=== PATIENT | female | born 1965 | race African-American/Black ===

== ENCOUNTER 2019-02-13 11:35 | Emergency (ER) | payer OTHER ==
[~2019-02-13] VITALS: Ht 154.9 cm; Wt 67.1 kg
[2019-02-13 11:45] VITALS: BP 120/87
== END 2019-02-13 12:53 | disposition home or self-care (01) ==
LOC: ER 11:39
DX: J03.90 Acute tonsillitis, unspecified (principal)

== ENCOUNTER 2021-04-20 14:09 | Emergency (ER) | payer OTHER ==
[~2021-04-20] VITALS: Ht 157.5 cm; Wt 67.1 kg
[2021-04-20 14:49] LABS: Urine Bacteria NONE SEEN /hpf (None Seen); Urine Blood 3+ /uL (Negative); Urine Mucus FEW (None Seen); Urine WBC 40 /hpf (0 - 5)
[2021-04-20 15:14] LABS: Basophils # (auto) 0 10 ^3/uL (0-0.2); Basophils % (auto) 0.5 % (0.0-2.0); Eosinophils # (auto) 0 10 ^3/uL (0-0.8); Eosinophils % (auto) 0.7 % (0.0-7.0); Hematocrit 39.4 % (36.0-46.0); Hemoglobin 13.4 g/dL (12.2-16.2); Lymphocytes # (auto) 1.5 10 ^3/uL (0.4-5.4); Lymphocytes % (auto) 39.6 % (10.0-50.0); Mean Corpuscular Hemoglobin 29.7 pg (28.0-32.0); Mean Corpuscular Hgb Conc. 33.9 g/dL (32.0-36.0); Mean Corpuscular Volume 87.6 fL (80.0-100.0); Monocytes # (auto) 0.3 10 ^3/uL (0-1.3); Monocytes % (auto) 8.3 % (0.0-12.0); Neutrophils # (auto) 1.9 10 ^3/uL (1.6-8.6); Neutrophils % (auto) 50.9 % (37.0-80.0); Nucleated Red Blood Cells % 0.2 %; Red Cell Distribution Width 13.9 % (11.8-14.3); White Blood Cell 3.8 10^3/uL (4.4-10.8)
[2021-04-20 15:30] LABS: Calcium 8.9 mg/dL (8.5-10.1); Potassium 3.3 mmol/L (3.5-5.1)
[2021-04-20 15:32] VITALS: BP 152/90
[2021-04-20 15:36] LABS: Albumin 3.8 g/dL (3.4-5.0); BUN/Creatinine Ratio 11.8; Bilirubin, Total 0.2 mg/dL (0.2-1.0)
[2021-04-20] MEDS ORDERED: cefTRIAXone SOD 1,000 MG VL IM ONE (16:15)
[2021-04-20] MEDS ORDERED: traMADol HCL 50 MG TAB PO ONE (17:15)
== END 2021-04-20 17:32 | disposition home or self-care (01) ==
LOC: ER 14:09
DX: N39.0 Urinary tract infection, site not specified (principal); M54.50 Low back pain, unspecified
CPT/HCPCS: 36415; 80053; 81001; 85025; 96372; 99283; J0696

== ENCOUNTER 2021-04-23 20:05 | Inpatient (IN) | payer OTHER ==
[~2021-04-23] VITALS: Ht 152.4 cm; Wt 69.5 kg
[2021-04-23 22:31] LABS: Urine Bacteria FEW /hpf (None Seen); Urine Blood Negative /uL (Negative); Urine Specific Gravity 1.005 (1.001-1.035); Urine WBC 16 /hpf (0 - 5)
[2021-04-23 23:30] LABS: Basophils # (auto) 0 10 ^3/uL (0-0.2); Basophils % (auto) 0.5 % (0.0-2.0); Eosinophils # (auto) 0 10 ^3/uL (0-0.8); Eosinophils % (auto) 0.3 % (0.0-7.0); Hematocrit 39.5 % (36.0-46.0); Hemoglobin 13.4 g/dL (12.2-16.2); Lymphocytes # (auto) 0.9 10 ^3/uL (0.4-5.4); Lymphocytes % (auto) 25.6 % (10.0-50.0); Mean Corpuscular Hemoglobin 29.6 pg (28.0-32.0); Monocytes # (auto) 0.5 10 ^3/uL (0-1.3); Monocytes % (auto) 15.5 % (0.0-12.0); Neutrophils % (auto) 58.1 % (37.0-80.0); Nucleated Red Blood Cells % 0.1 %; Red Blood Cells 4.54 10^6/uL (4.0-5.20); Red Cell Distribution Width 13.6 % (11.8-14.3); White Blood Cell 3.4 10^3/uL (4.4-10.8)
[2021-04-23] MEDS ORDERED: cefTRIAXone SOD 500 MG VL IM ONE (23:30)
[2021-04-23 23:45] LABS: Calcium 8.7 mg/dL (8.5-10.1); Potassium 3.2 mmol/L (3.5-5.1)
[2021-04-23 23:49] LABS: Albumin 3.6 g/dL (3.4-5.0); BUN/Creatinine Ratio 7.8
[2021-04-23 23:51] LABS: Bilirubin, Total 0.3 mg/dL (0.2-1.0); Total Protein 8.1 g/dL (6.4-8.2)
[2021-04-24] MEDS ORDERED: ONDANSETRON HCL 4 MG/2 ML VIAL IV PRN (03:30)
[2021-04-24] MEDS ORDERED: HYDROcodone-ACET 5/325MG TAB PO PRN (03:30)
[2021-04-24] MEDS ORDERED: ACETAMINOPHEN 325 MG TAB PO PRN (03:30)
[2021-04-24] MEDS ORDERED: POTASSIUM CHL 20 Meq TABLET PO ONE (03:30)
[2021-04-24] MEDS ORDERED: MORPHINE SULFATE INJECTION 2 MG/ML SYRG ONE (05:22)
[2021-04-24] MEDS: MORPHINE SULFATE 4 MG/ML SYR/VIAL IV PRN ×2 (05:55→20:10)
[2021-04-24] MEDS: PANTOPRAZOLE 40 MG TAB PO SCH (09:18)
[2021-04-24] MEDS: cefTRIAXone 1GM/50ML D5W 50 ML IV SCH (09:18)
[2021-04-24] MEDS ORDERED: LIDOCAINE 2%HCL (LOCAL ANESTH.) INJ 20ML MDV ONE ×3 (10:17→11:45)
[2021-04-24] MEDS ORDERED: IODIXANOL 320MG/ML 100ML BTL IV ONE (10:17)
[2021-04-24 10:50] LABS: INR 1.08 (0.9-1.15); Partial Thromboplastin Time 29.6 sec (23.6-33.0)
[2021-04-24] MEDS ORDERED: MIDAZOLAM HCL 2MG/2ML 2ml VIAL (1mg/ml) ONE (10:58)
[2021-04-24] MEDS ORDERED: fentaNYL CITRATE 100 MCG/2 ML VL ONE (10:58)
[2021-04-24] MEDS ORDERED: TAMSULOSIN HYDROCHLORIDE 0.4 MG CAP PO ONE (12:30)
[2021-04-24 14:43] VITALS: BP 153/90
[2021-04-24 14:45] VITALS: BP 153/90
[2021-04-24 17:00] VITALS: BP 132/79
[2021-04-24] MEDS: TAMSULOSIN HYDROCHLORIDE 0.4 MG CAP PO SCH (17:32)
[2021-04-24 22:00] VITALS: BP 122/78
[2021-04-25 05:00] VITALS: BP 105/68
[2021-04-25 05:58] LABS: Basophils # (auto) 0 10 ^3/uL (0-0.2); Basophils % (auto) 0.6 % (0.0-2.0); Eosinophils # (auto) 0 10 ^3/uL (0-0.8); Eosinophils % (auto) 0.4 % (0.0-7.0); Hematocrit 39.9 % (36.0-46.0); Hemoglobin 13.4 g/dL (12.2-16.2); Lymphocytes # (auto) 1.2 10 ^3/uL (0.4-5.4); Lymphocytes % (auto) 32.1 % (10.0-50.0); Mean Corpuscular Hemoglobin 29.1 pg (28.0-32.0); Mean Corpuscular Hgb Conc. 33.7 g/dL (32.0-36.0); Mean Corpuscular Volume 86.4 fL (80.0-100.0); Monocytes # (auto) 0.4 10 ^3/uL (0-1.3); Monocytes % (auto) 9.6 % (0.0-12.0); Neutrophils # (auto) 2.1 10 ^3/uL (1.6-8.6); Neutrophils % (auto) 57.3 % (37.0-80.0); Nucleated Red Blood Cells % 0.3 %; Red Blood Cells 4.61 10^6/uL (4.0-5.20); Red Cell Distribution Width 13.9 % (11.8-14.3); White Blood Cell 3.7 10^3/uL (4.4-10.8)
[2021-04-25 06:16] LABS: BUN/Creatinine Ratio 11.3; Calcium 8.9 mg/dL (8.5-10.1); Potassium 3.6 mmol/L (3.5-5.1)
[2021-04-25 08:00] VITALS: BP 118/77
[2021-04-25] MEDS: cefTRIAXone 1GM/50ML D5W 50 ML IV SCH (09:59)
[2021-04-25] MEDS: PANTOPRAZOLE 40 MG TAB PO SCH (09:59)
[2021-04-25 11:50] VITALS: BP 119/77
[2021-04-25 17:00] VITALS: BP 99/65
[2021-04-25] MEDS: TAMSULOSIN HYDROCHLORIDE 0.4 MG CAP PO SCH (18:03)
[2021-04-25 20:00] VITALS: BP 99/60
[2021-04-25 22:00] VITALS: BP 99/60
[2021-04-26] MEDS: MORPHINE SULFATE 4 MG/ML SYR/VIAL IV PRN (00:29)
[2021-04-26 05:00] VITALS: BP 105/53
[2021-04-26 09:00] VITALS: BP 101/55
[2021-04-26] MEDS: cefTRIAXone 1GM/50ML D5W 50 ML IV SCH (10:00)
[2021-04-26] MEDS: PANTOPRAZOLE 40 MG TAB PO SCH (10:00)
[2021-04-26] MEDS ORDERED: LEVO500T31 PO (11:34)
[2021-04-26] MEDS ORDERED: TAM04C PO (11:34)
[2021-04-26] MEDS ORDERED: TRAM50TA2 PO (11:34)
== END 2021-04-26 14:15 | disposition home or self-care (01) | DRG 463 ==
LOC: ER 20:10 → OVERFLOW 04-24 03:30 → WEST WING 04-24 14:36
PROVIDERS: ADMIT Nurse Practitioner; ATTEND Family Medicine
PROC: 0T9130Z Drainage of Left Kidney with Drainage Device, Percutaneous Approach (ICD-10-PCS; principal; 2021-04-24)
PROC: BT1F1ZZ Fluoroscopy of Left Kidney, Ureter and Bladder using Low Osmolar Contrast (ICD-10-PCS; 2021-04-24)
PROC: BT42ZZZ Ultrasonography of Left Kidney (ICD-10-PCS; 2021-04-24)
DX: N13.6 Pyonephrosis (principal); U07.1 COVID-19; Z90.5 Acquired absence of kidney; Z93.6 Other artificial openings of urinary tract status
CPT/HCPCS: 36415; 50432; 71045; 74176; 76942; 80048; 80053; 81001; 81025; 82962; 83605; 84702; 85025; 85610; 85730; 86850; 86900; 86901; 87086; 87426; 96365; 96372; 96375; 99152; 99153; C1729; G0378; J0696; J2250; Q9967

== ENCOUNTER 2021-05-02 14:41 | Emergency (ER) | payer OTHER ==
[~2021-05-02] VITALS: Ht 157.5 cm; Wt 67.1 kg
[~2021-05-02 14:41] MED LIST: LEVO500T31 PO; TAM04C PO; TRAM50TA2 PO
[2021-05-02 16:41] LABS: Basophils # (auto) 0.1 10 ^3/uL (0-0.2); Basophils % (auto) 1.1 % (0.0-2.0); Eosinophils # (auto) 0.1 10 ^3/uL (0-0.8); Eosinophils % (auto) 1.7 % (0.0-7.0); Hematocrit 39.5 % (36.0-46.0); Hemoglobin 13.2 g/dL (12.2-16.2); Lymphocytes # (auto) 2.1 10 ^3/uL (0.4-5.4); Lymphocytes % (auto) 45.2 % (10.0-50.0); Mean Corpuscular Hgb Conc. 33.3 g/dL (32.0-36.0); Mean Corpuscular Volume 87.2 fL (80.0-100.0); Monocytes # (auto) 0.2 10 ^3/uL (0-1.3); Monocytes % (auto) 5.1 % (0.0-12.0); Neutrophils # (auto) 2.2 10 ^3/uL (1.6-8.6); Neutrophils % (auto) 46.9 % (37.0-80.0); Nucleated Red Blood Cells % 0.3 %; Red Blood Cells 4.54 10^6/uL (4.0-5.20); Red Cell Distribution Width 13.6 % (11.8-14.3); White Blood Cell 4.6 10^3/uL (4.4-10.8)
[2021-05-02 16:57] LABS: Albumin 3.5 g/dL (3.4-5.0); Calcium 9.2 mg/dL (8.5-10.1); Potassium 4.3 mmol/L (3.5-5.1)
[2021-05-02 16:59] LABS: BUN/Creatinine Ratio 15.4
[2021-05-02 17:02] LABS: Bilirubin, Total 0.2 mg/dL (0.2-1.0); Total Protein 8.1 g/dL (6.4-8.2)
[2021-05-02 23:20] VITALS: BP 109/82
== END 2021-05-02 23:22 | disposition home or self-care (01) ==
LOC: ER 14:41
DX: T83.092A Other mechanical complication of nephrostomy catheter, initial encounter (principal); N99.520 Hemorrhage of incontinent external stoma of urinary tract; Z79.2 Long term (current) use of antibiotics; Z79.899 Other long term (current) drug therapy
CPT/HCPCS: 36415; 74176; 80053; 85025

== ENCOUNTER → 2021-05-24 | Day surgery (SDC) | payer OTHER ==
[~2021-05-24] VITALS: Ht 157.5 cm; Wt 67.6 kg
[~2021-05-24] MED LIST changes: +IOHEXOL 300 MG/ML 100ML BOTTLE IJ ONE; +MEPERIDINE HCL (25 MG/ML) 1ML VIAL ONE; +METOCLOPRAMIDE HCL 5MG/ml INJ 2ml VIAL IV PRN; +MIDAZOLAM HCL 2MG/2ML 2ml VIAL (1mg/ml) ONE; +MORPHINE SULFATE 4 MG/ML SYR/VIAL IV PRN; +ONDANSETRON HCL 4 MG/2 ML VIAL ONE; +PROPOFOL 10 MG/ML 20 ML IV ONE; +SODIUM CHLORIDE LOCK 10 ML ONE; +ceFAZolin 1GM/50ML 100 ML IV ONE
[2021-05-24] MEDS: HYDROmorphone HCL 2 MG/ML VL IV PRN ×2 (11:11→11:23)
[2021-05-24 11:45] VITALS: BP 103/67
== END | disposition home or self-care (01) ==
LOC: SUR 07:32
PROVIDERS: ATTEND Urology
DX: T19.9XXA Foreign body in genitourinary tract, part unspecified, initial encounter (principal); N13.2 Hydronephrosis with renal and ureteral calculous obstruction; Z20.822 Contact with and (suspected) exposure to COVID-19; Z86.2 Personal history of diseases of the blood and blood-forming organs and certain disorders involving the immune mechanism; Y82.8 Other medical devices associated with adverse incidents
CPT/HCPCS: 50389; 52351; 74018; J0690; J1170; J2175; J2250; J2405; J2704; Q9967; U0003; 76000

== ENCOUNTER 2024-01-30 17:46 | Emergency (ER) | payer SELFPAY ==
[~2024-01-30] VITALS: Ht 203.2 cm; Wt 68.0 kg
[~2024-01-30 17:46] MED LIST changes: -IOHEXOL 300 MG/ML 100ML BOTTLE IJ ONE; -MEPERIDINE HCL (25 MG/ML) 1ML VIAL ONE; -METOCLOPRAMIDE HCL 5MG/ml INJ 2ml VIAL IV PRN; -MIDAZOLAM HCL 2MG/2ML 2ml VIAL (1mg/ml) ONE; -MORPHINE SULFATE 4 MG/ML SYR/VIAL IV PRN; -ONDANSETRON HCL 4 MG/2 ML VIAL ONE; -PROPOFOL 10 MG/ML 20 ML IV ONE; -SODIUM CHLORIDE LOCK 10 ML ONE; -TAM04C PO; +TAMS-35 PO; -ceFAZolin 1GM/50ML 100 ML IV ONE
[2024-01-30 17:48] VITALS: BP 115/73; PULSE 86; RESP 20; TEMP 99.3; O2SAT 96
[2024-01-30] MEDS ORDERED: HYDR50TA69 PO (20:52)
[2024-01-30] MEDS ORDERED: METH4PAK PO (20:52)
[2024-01-30] MEDS: FAMOTIDINE 20 MG TAB PO ONE (20:54)
[2024-01-30] MEDS: DexAMETHasone SOD PHOS 10MG/1ML VIAL INJ IM ONE (20:59)
== END 2024-01-30 21:11 | disposition home or self-care (01) ==
LOC: ER 17:46
DX: R21 Rash and other nonspecific skin eruption (principal); M79.89 Other specified soft tissue disorders; Z87.440 Personal history of urinary (tract) infections; Z88.5 Allergy status to narcotic agent; Z79.899 Other long term (current) drug therapy; W57.XXXA Bitten or stung by nonvenomous insect and other nonvenomous arthropods, initial encounter; Y93.89 Activity, other specified; Y92.89 Other specified places as the place of occurrence of the external cause; Y99.8 Other external cause status
CPT/HCPCS: 96372; 99283; J1100